=== PATIENT | male | born 1960 | race Caucasian/White ===

== ENCOUNTER 2021-08-24 10:04 | Outpatient (CLI) | payer OTHER | END 2021-08-24 10:05 | disposition home or self-care (01) | LOC: CSHULT 10:04 | PROVIDERS: ATTEND Family Medicine | DX: R10.10 Upper abdominal pain, unspecified (principal); R74.8 Abnormal levels of other serum enzymes; D73.4 Cyst of spleen; K80.20 Calculus of gallbladder without cholecystitis without obstruction | CPT/HCPCS: 74170 ==

== ENCOUNTER 2021-09-13 07:47 | Outpatient (CLI) | payer OTHER | END 2021-09-13 07:48 | disposition home or self-care (01) | LOC: CSHULT 07:47 | PROVIDERS: ATTEND Family Medicine | DX: R10.10 Upper abdominal pain, unspecified (principal); R74.8 Abnormal levels of other serum enzymes; K80.20 Calculus of gallbladder without cholecystitis without obstruction | CPT/HCPCS: 76705 ==